=== PATIENT | male | born 1965 | race Caucasian/White ===

== ENCOUNTER 2016-11-24 18:26 | Emergency (ER) | payer OTHER ==
[~2016-11-24] VITALS: Ht 185.4 cm; Wt 104.3 kg
[2016-11-24 19:28] LABS: ABSOLUTE BASOPHIL COUNT 0 /CUMM (0.0-0.2); ABSOLUTE EOSINOPHIL COUNT 0.1 /CUMM (0.0-0.7); ABSOLUTE GRANULOCYTE CT 7.3 /CUMM (1.4-6.5); ABSOLUTE LYMPH COUNT 1.6 /CUMM (1.2-3.4); ABSOLUTE MONOCYTE COUNT 0.6 /CUMM (0.10-0.60); BASOPHIL % 0.3 % (0.0-2.0); EOSINOPHIL % 0.8 % (0-5); GRANULOCYTE % 75.9 % (42.2-75.2); HEMATOCRIT 45.3 % (42-52); MEAN CORPUSCULAR HGB CONC 33.8 G/DL (33.0-37.0); MEAN CORPUSCULAR VOLUME 94.6 FL (80.0-94.0); MEAN PLATELET VOLUME 8.1 FL (7.4-10.4); PLATELET COUNT 279 /CUMM (130-400); RBC DISTRIBUTION WIDTH 13.3 % (11.5-14.5); RED BLOOD CELL CT 4.79 /CUMM (4.70-6.10); WHITE BLOOD CELL COUNT 9.7 /CUMM (4.8-10.8)
--- NOTE | 2016-11-24 20:02 | ED NECK/BACK PAIN COMPLAINT ---
History of Present Illness General Chief Complaint: General Adult Stated Complaint: LOW BACK PAIN, RADIATES TO LOWER ABDOMEN Source: patient, family, old records Exam Limitations: no limitations Vital Signs & Intake/Output Vital Signs & Intake/Output Vital Signs Date Time Temp Pulse Resp B/P B/P Pulse O2 O2 Flow FiO2 Mean Ox Delivery Rate 11/24 2040 97.8 81 18 146/92 97 Room Air 11/25 2003 98 Room Air 11/24 1841 97.4 77 16 144/94 96 Room Air ED Intake and Output 11/25 0000 11/24 1200 Intake Total Output Total Balance Patient 230 lb Weight Weight Reported by Patient Measurement Method Allergies Coded Allergies: MDX - No Known Drug Allergies - Nkd (NO KNOWN DRUG ALLERGIES - NKDA) (11/04/13) Reconcile Medications Tylenol With Codeine (Tylenol With Codeine #3 Tablet) 300 MG-30 MG TABLET 1 TAB PO BIDP PRN pain Triage Note: PT STATES HE IS HAVING BACK PAIN ON AND OFF FOR THE PAST WEEK.. PT STATES HE DID HAVE A TICK ON HIM AND HE IS CONCERNED THAT HE MAY HAVE TICK BORN ILLNESS. STATES SOMETIMES THE PAIN GETS REALY SHARP AND STRONG ON LEFT FLANK THAT WRAPS AROUND INTO HIS GROIN Triage Nurses Notes Reviewed? yes Onset: Abrupt Duration: week(s): (1), intermittent Timing: recent history HPI: This 21-year-old male with history of hypertension and high cholesterol presents to ER for evaluation playing of left lower back pain intermittent in nature for the past 1 week sharp in nature radiating to the left groin. Symptoms come on randomly they're not worse with change in position. He denies any urinary urgency frequency dysuria hematuria. No fever no chills no nausea no vomiting no weight loss. He denies any other joint pain. The patient states that 3 weeks ago he was bitten by a tick which she was able to remove that day. His sister gave him to doxycycline pills that day which he took. He denies any diaphoresis or other joint pain. No recent fall or trauma. He has not taken anything for symptoms (EM CELESTE,GRZEGORZ) Past History Travel History Traveled to [place] past 21 day No Medical History Any Pertinent Medical History? see below for history Cardiovascular: hypertension, hyperlipidemia Surgical History Surgical History: non-contributory Psychosocial History What is your primary language Nepalese Tobacco Use: Never used ETOH Use: occasional use Illicit Drug Use: denies illicit drug use Family History Hx Contributory? No (GRZEGORZ MATA) Review of Systems Review of Systems Constitutional: Reports: see HPI. All Other Systems: Reviewed and Negative Comments Review of systems: See HPI, All other systems negative. Constitutional, no chills no fever, no malaise HEENT: No visual changes no sore throat no congestion, Cardio: No chest pain Skin: no rashes, no change in skin Respiratory: No dyspnea no cough no sputum no hemoptysis GI: No nausea no vomiting, no diarrhea, no bloating/constipation : No dysuria No hematuria, no frequency, no discharge Muscle skeletal: No joint pain, no joint swelling, back pain, no neck pain, Neurologic: No numbness no headache Psych: No stress Heme/endocrine: No bruising Immunology: No lymphadenopathy (GRZEGORZ MATA) Physical Exam Physical Exam General Appearance: well developed/nourished, alert, awake Neck: normal inspection Comments: Well-developed well-nourished person in no acute distress HEENT: Normal EENT exam; PERRL, EOMI, HEAD is atraumatic. moist mucous membranes. Neck: Supple, no lymphadenopathy, normal range of motion Back: Nontender, no ecchymosis or signs of trauma of trauma no CVA tenderness. Full range of motion Cardiovascular: Regular rate and rhythms no murmurs rubs Respiratory: No respiratory distress. Patient speaking in full complete sentences. Breath sounds clear to auscultation bilaterally: NO W/R/R Abdomen: Soft, nontender nondistended, no appreciable organomegaly. Normal bowel sounds. No rebound/guarding, No appreciable enlargement of the abdominal aorta, No ascites. Extremity: No edema, full range of motion of extremities, normal and equal pulses bilaterally, 5 out of 5 strength noted to bilateral upper and lower extremities negative straight leg raise bilaterally Neuro: Alert oriented x3, motor sensory normal, There were no obvious focal neurologic abnormalities. Skin: No appreciable rash on exposed skin, skin is warm and dry. Superficial ecchymosis 0.5 cm located to the left medial proximal thigh, there is no embedded tICK, no induration, fluctance or streaking up the skin Psych: Mood and affect is normal, memory and judgment is normal. (GRZEGORZ MATA) Progress Differential Diagnosis: cauda equina syn, herniated disc, myofascial strain, pyelo/UTI, spinal cord inj, thoracic outlet syn, T/L spine injury, ureterolithiasis, HERNIA, PANCREATITIS, ABSCESS, DIVERTICULITIS Plan of Care: Orders Procedure Date/time Status URINALYSIS 11/25 1843 Complete LYME TITRE 11/25 1843 Active COMPREHENSIVE METABOLIC PANEL 11/25 1843 Complete CBC WITHOUT DIFFERENTIAL 11/25 1843 Complete Laboratory Tests 11/24/161853: Anion Gap 10, Estimated GFR > 60, BUN/Creatinine Ratio 22.5, Glucose 90, Calcium 9.8, Total Bilirubin 0.7, AST 30, ALT 60, Alkaline Phosphatase 83, Total Protein 7.2, Albumin 4.5, Globulin 2.7, Albumin/Globulin Ratio 1.7, CBC w Diff NO MAN DIFF REQ, RBC 4.79, MCV 94.6 H, MCH 32.0 H, RDW 13.3, MPV 8.1, Gran % 75.9 H, Lymphocytes % 17.0 L, Monocytes % 6.0, Eosinophils % 0.8, Basophils % 0.3, Absolute Granulocytes 7.3 H, Absolute Lymphocytes 1.6, Absolute Monocytes 0.6, Absolute Eosinophils 0.1, Absolute Basophils 0, PUBS MCHC 33.8, Lyme Disease Antibody Pending, Urine Color YEL, Urine Clarity CLEAR, Urine pH 5.5, Ur Specific [place] >= 1.030, Urine Protein NEG, Urine Ketones NEG, Urine Nitrite NEG, Urine Bilirubin NEG, Urine Urobilinogen 0.2, Ur Leukocyte Esterase NEG, Ur Microscopic SEDIMENT EXAMINED, Urine RBC 1-3, Urine WBC 1-3 H, Ur Epithelial Cells RARE, Urine Bacteria FEW H, Urine Mucus MANY H, Urine Hemoglobin SMALL H, Urine Glucose NEG Labs ordered old records reviewed CAT scan ordered patient is declining anything for pain when offered Discussed with patient and his at length his CAT scan findings case and CAT scan were reviewed with Dr. Garcia MRI is unavailable at this time we will get CAT scan with IV contrast Toradol 30 IV ordered Discussed with patient and his at length his CAT scan findings. I discussed with him that he will require an MRI with IV contrast to further evaluate these lesions advised to call his primary care physician tomorrow CAT scan was discussed with Dr. Garcia agrees with plan patient feels comfortable pain is improved with Toradol at her office questions I discussed with the patient at length all of their results. I had an extensive conversation regarding need for close follow up with their primary care physician this week as well as return precautions. I answered all of their questions, they feel comfortable with the plan and follow-up care. I discussed the medications that they will receive with the patient. I gave them signs and symptoms that could indicate an adverse reaction. I have advised them to limit their activities until they can see how they respond to the medication. (EM CELESTE,GRZEGORZ) Diagnostic Imaging: Viewed by Me: CT Scan. Discussed w/RAD: CT Scan. Radiology Impression: PATIENT: SHILPA HUSAIN PRESENT AGE: 51 PATIENT ACCOUNT NO: [id number] : 65 LOCATION: [facility] ORDERING PHYSICIAN: GRZEGORZ CELESTE SERVICE DATE: 11/24/16 EXAM TYPE: CAT - CT ABD & PELVIS W/O IV CONTRAS EXAMINATION: CT ABDOMEN AND PELVIS WITHOUT CONTRAST CLINICAL INFORMATION: Left lower back pain radiating into the left groin COMPARISON: None TECHNIQUE: Multidetector volumetric imaging was performed from the superior aspect of the liver through the pubic symphysis. Sagittal and coronal reformatted images were obtained on the technologist's workstation. DLP: 595.94 mGy-cm FINDINGS: LUNG BASES: The visualized lung bases are unremarkable. LIVER, GALLBLADDER, AND BILIARY TREE: 2 vague hypodense regions are seen at the hepatic dome measuring 2.0 and 1.4 cm. 5.5 x 4.1 cm oval hypodense lesion intimately associated with the undersurface of the left hepatic lobe interposed between the liver and stomach and unable to be resolved from hepatic tissue along its superior aspect. Evaluation is limited without IV contrast. No evidence of intrahepatic biliary dilatation. Focal calcification within the hepatic parenchyma is of doubtful clinical significance. The gallbladder is unremarkable with no evidence of radiopaque gallstones, gallbladder wall thickening, or obvious pericholecystic inflammatory changes. PANCREAS: Unremarkable. SPLEEN: Unremarkable. ADRENAL GLANDS: Unremarkable. KIDNEYS AND URETERS: The kidneys are normal in size, shape, and attenuation. No hydronephrosis, hydroureter, or calculi seen. No perinephric stranding. BLADDER: Unremarkable. GASTROINTESTINAL TRACT: Scattered diverticulosis predominantly involving the sigmoid colon without CT evidence of diverticulitis. The appendix is unremarkable. No evidence of bowel obstruction. ABDOMINAL WALL: No significant hernia is appreciated. LYMPH NODES: No evidence of lymphadenopathy within the abdomen or pelvis by CT criteria. VASCULAR: Circumaortic left renal vein. No abdominal aortic aneurysm. PELVIC VISCERA: Unremarkable. Pelvic phleboliths. OSSEOUS STRUCTURES: Unremarkable. IMPRESSION: 1. 3 ill-defined indeterminate hypodense lesions within the liver, the largest of which measures up to 5.5 cm and is exophytic off the left hepatic lobe. Evaluation is limited without IV contrast. Recommend initial workup with dedicated liver ultrasound or contrast-enhanced CT or MRI of the liver. 2. Diverticulosis without CT evidence of diverticulitis. 3. No evidence of urolithiasis. Circumaortic left renal vein. This critical result was discussed with BOOKER Velasquez at 8:54 PM on 11/24/2016 and it was ascertained that the content and urgency of the report was understood at the time of direct communication. DICTATED BY: ELBERT FRANCIS MD DATE/TIME DICTATED:11/24/162029 BILLPOSTER:[email or web address] DATE/TIME TRANSCRIBED:2029 CONFIDENTIAL, DO NOT COPY WITHOUT APPROPRIATE AUTHORIZATION. < Electronically signed in Other Vendor System> SIGNED BY: ELBERT FRANCIS MD 2056, PATIENT: SHILPA HUSAIN PRESENT AGE: 51 PATIENT ACCOUNT NO: [id number] : 65 LOCATION: [facility] ORDERING PHYSICIAN: GRZEGORZ CELESTE SERVICE DATE: 11/24/16 EXAM TYPE: CAT - CT ABD & PELVIS W IV CONTRAST EXAMINATION: CT ABDOMEN AND PELVIS WITH CONTRAST CLINICAL INFORMATION: Evaluate for liver mass. Liver lesions on noncontrast. Left-sided lower back pain. COMPARISON: None. TECHNIQUE: Multidetector volumetric imaging was performed of the abdomen and pelvis before and after the IV administration of 95 mL of Optiray 320 intravenous contrast. Sagittal and coronal reformatted images were obtained on the technologist's workstation. DLP: 495 mGy-cm. FINDINGS: LUNG BASES: The visualized lung bases are unremarkable. LIVER, GALLBLADDER, AND BILIARY TREE: As noted previously there are 3 hypodense foci in the right lobe of the liver just distal to the dome ranging in size between 1.17 cm. There is some partial enhancement of the lesions. There is also a heterogeneously-enhancing focus likely arising from the surface of the liver abutting the adjacent lesser curvature of the stomach. Its borders are not well- defined. However, this measures up to 5.5 cm transverse and 3 cm AP. The density and the appearance appears similar to that of the smaller lesions noted near the dome of the right lobe of the liver. There is no intrahepatic or extrahepatic biliary dilatation. The gallbladder is unremarkable with no evidence of radiopaque gallstones, gallbladder wall thickening, or obvious pericholecystic inflammatory changes. PANCREAS: Unremarkable. SPLEEN: Unremarkable. ADRENAL GLANDS: Unremarkable. KIDNEYS AND URETERS: The kidneys are normal in size, shape , and attenuation. No hydronephrosis, hydroureter, or calculi seen. No perinephric stranding. BLADDER: Unremarkable. GASTROINTESTINAL TRACT: Scattered diverticula in the descending and sigmoid colon. No diverticulitis. Appendix unremarkable. Small bowel normal. Stomach normal. ABDOMINAL WALL: Normal. No hernia. LYMPH NODES: Normal. VASCULAR: Mild arterial calcification throughout. PELVIC VISCERA: Unremarkable. OSSEOUS STRUCTURES: Multilevel spondylosis of the lumbosacral spine with degenerative disc changes most prominent at the L2-L3, L4 -L5 and L5-S1 levels. IMPRESSION: 1. Prominent heterogeneous mass in the left lobe of the liver with a similar appearance to the smaller lesions noted near the dome of the right lobe of the liver. These most likely reflect hemangiomas. This diagnosis could be confirmed with dynamic MRI of the liver with contrast. 2. Mild calcific atherosclerotic disease. 3. Multilevel spondylosis of the lumbosacral spine. DICTATED BY: ALYSIA ANN MD DATE/TIME DICTATED:2131 BILLPOSTER:STANISLAV DATE/TIME TRANSCRIBED:11/24/162131 CONFIDENTIAL, DO NOT COPY WITHOUT APPROPRIATE AUTHORIZATION. <Electronically signed in Other Vendor System> SIGNED BY: ALYSIA ANN MD 11/24/162152 (GRZEGORZ MATA) Departure Departure Time of Disposition: 2214 Disposition: HOME OR SELF CARE Condition: Stable Clinical Impression Primary Impression: Back pain Secondary Impressions: Liver lesion Referrals: ALYSIA VILLAFUERTE MD (PCP/Family) Additional Instructions: Follow-up with your primary care physician tomorrow regarding the incidental findings on the CAT scan as discussed. You'll require a MRI of your liver with IV contrast to further evaluate. Tylenol with codeine for pain. this was sent to [facility]. this may make you drowsy. return to the ER at anytime sooner with any concerns Departure Forms: Customer Survey General Discharge Information Prescriptions: Current Visit Scripts Tylenol With Codeine (Tylenol With Codeine #3 Tablet) 1 TAB PO BIDP PRN pain #10 TAB (GRZEGORZ MATA) PA/MILL SET UP Co-Sign Statement Statement: ED Attending supervision documentation- [] I saw and evaluated the patient. I have also reviewed all the pertinent lab results and diagnostic results. I agree with the findings and the plan of care as documented in the PA's/MILL SET UP's documentation. [x] I have reviewed the ED Record and agree with the PA's/MILL SET UP's documentation. [] Additions or exceptions (if any) to the PAs/MILL SET UP's note and plan are summarized below: [] (KAYLA LYLE,SHOBHA Dempsey)
[2016-11-24 20:41] VITALS: BP 146/92
--- NOTE | 2016-11-24 20:57 | CT SCAN REPORT ---
EXAMINATION: CT ABDOMEN AND PELVIS WITHOUT CONTRAST CLINICAL INFORMATION: Left lower back pain radiating into the left groin COMPARISON: None TECHNIQUE: Multidetector volumetric imaging was performed from the superior aspect of the liver through the pubic symphysis. Sagittal and coronal reformatted images were obtained on the technologist's workstation. DLP: 595.94 mGy-cm FINDINGS: LUNG BASES: The visualized lung bases are unremarkable. LIVER, GALLBLADDER, AND BILIARY TREE: 2 vague hypodense regions are seen at the hepatic dome measuring 2.0 and 1.4 cm. 5.5 x 4.1 cm oval hypodense lesion intimately associated with the undersurface of the left hepatic lobe interposed between the liver and stomach and unable to be resolved from hepatic tissue along its superior aspect. Evaluation is limited without IV contrast. No evidence of intrahepatic biliary dilatation. Focal calcification within the hepatic parenchyma is of doubtful clinical significance. The gallbladder is unremarkable with no evidence of radiopaque gallstones, gallbladder wall thickening, or obvious pericholecystic inflammatory changes. PANCREAS: Unremarkable. SPLEEN: Unremarkable. ADRENAL GLANDS: Unremarkable. KIDNEYS AND URETERS: The kidneys are normal in size, shape, and attenuation. No hydronephrosis, hydroureter, or calculi seen. No perinephric stranding. BLADDER: Unremarkable. GASTROINTESTINAL TRACT: Scattered diverticulosis predominantly involving the sigmoid colon without CT evidence of diverticulitis. The appendix is unremarkable. No evidence of bowel obstruction. ABDOMINAL WALL: No significant hernia is appreciated. LYMPH NODES: No evidence of lymphadenopathy within the abdomen or pelvis by CT criteria. VASCULAR: Circumaortic left renal vein. No abdominal aortic aneurysm. PELVIC VISCERA: Unremarkable. Pelvic phleboliths. OSSEOUS STRUCTURES: Unremarkable. IMPRESSION: 1. 3 ill-defined indeterminate hypodense lesions within the liver, the largest of which measures up to 5.5 cm and is exophytic off the left hepatic lobe. Evaluation is limited without IV contrast. Recommend initial workup with dedicated liver ultrasound or contrast-enhanced CT or MRI of the liver. 2. Diverticulosis without CT evidence of diverticulitis. 3. No evidence of urolithiasis. Circumaortic left renal vein. This critical result was discussed with BOOKER Velasquez at 8:54 PM on 11/24/2016 and it was ascertained that the content and urgency of the report was understood at the time of direct communication.
--- NOTE | 2016-11-24 21:53 | CT SCAN REPORT ---
EXAMINATION: CT ABDOMEN AND PELVIS WITH CONTRAST CLINICAL INFORMATION: Evaluate for liver mass. Liver lesions on noncontrast. Left-sided lower back pain. COMPARISON: None. TECHNIQUE: Multidetector volumetric imaging was performed of the abdomen and pelvis before and after the IV administration of 95 mL of Optiray 320 intravenous contrast. Sagittal and coronal reformatted images were obtained on the technologist's workstation. DLP: 495 mGy-cm. FINDINGS: LUNG BASES: The visualized lung bases are unremarkable. LIVER, GALLBLADDER, AND BILIARY TREE: As noted previously there are 3 hypodense foci in the right lobe of the liver just distal to the dome ranging in size between 1.17 cm. There is some partial enhancement of the lesions. There is also a heterogeneously-enhancing focus likely arising from the surface of the liver abutting the adjacent lesser curvature of the stomach. Its borders are not well-defined. However, this measures up to 5.5 cm transverse and 3 cm AP. The density and the appearance appears similar to that of the smaller lesions noted near the dome of the right lobe of the liver. There is no intrahepatic or extrahepatic biliary dilatation. The gallbladder is unremarkable with no evidence of radiopaque gallstones, gallbladder wall thickening, or obvious pericholecystic inflammatory changes. PANCREAS: Unremarkable. SPLEEN: Unremarkable. ADRENAL GLANDS: Unremarkable. KIDNEYS AND URETERS: The kidneys are normal in size, shape, and attenuation. No hydronephrosis, hydroureter, or calculi seen. No perinephric stranding. BLADDER: Unremarkable. GASTROINTESTINAL TRACT: Scattered diverticula in the descending and sigmoid colon. No diverticulitis. Appendix unremarkable. Small bowel normal. Stomach normal. ABDOMINAL WALL: Normal. No hernia. LYMPH NODES: Normal. VASCULAR: Mild arterial calcification throughout. PELVIC VISCERA: Unremarkable. OSSEOUS STRUCTURES: Multilevel spondylosis of the lumbosacral spine with degenerative disc changes most prominent at the L2-L3, L4-L5 and L5-S1 levels. IMPRESSION: 1. Prominent heterogeneous mass in the left lobe of the liver with a similar appearance to the smaller lesions noted near the dome of the right lobe of the liver. These most likely reflect hemangiomas. This diagnosis could be confirmed with dynamic MRI of the liver with contrast. 2. Mild calcific atherosclerotic disease. 3. Multilevel spondylosis of the lumbosacral spine.
[2016-11-24] MEDS ORDERED: TYLENOL WITH C1 EACH PO (22:17)
== END 2016-11-24 22:23 ==
LOC: ERH 18:26
PROVIDERS: Emergency Medicine
DX: K76.9 Liver disease, unspecified (principal); I10 Essential (primary) hypertension; E78.5 Hyperlipidemia, unspecified; F10.10 Alcohol abuse, uncomplicated
CPT/HCPCS: 86618; 74176; 74177; 81001; 96374; J1885

== ENCOUNTER 2018-01-20 17:35 | Inpatient (IN) | payer OTHER ==
[~2018-01-20] VITALS: Ht 185.4 cm; Wt 106.1 kg
[~2018-01-20 17:35] MED LIST: TYLENOL WITH C1 EACH PO
--- NOTE | 2018-01-20 18:38 | ED CARDIAC/CP/PALPITATIONS ---
History of Present Illness General Chief Complaint: Chest Pain Stated Complaint: CP/SOB Source: patient Exam Limitations: no limitations Vital Signs & Intake/Output Vital Signs & Intake/Output Vital Signs Date Time Temp Pulse Resp B/P B/P Pulse O2 O2 Flow FiO2 Mean Ox Delivery Rate 01/20 1927 83 16 116/70 97 Room Air 01/20 1744 98.2 108 18 108/68 96 Room Air Allergies Coded Allergies: No Known Allergies (01/20/18) Reconcile Medications Aspirin (Ecotrin*) 81 MG TABLET.DR 1 TAB PO DAILY HEART/BLOOD (Reported) Losartan/Hydrochlorothiazide (Losartan-Hctz 100-25 MG Tab) 100 MG-25 MG TABLET 1 TAB PO DAILY BP (Reported) Metoprolol Succinate 50 MG TAB.ER.24H 1 TAB PO DAILY HEART/BP (Reported) Triage Note: 52 YEAR OLD MALE STATES THAT HE WAS WORKING OUTSIDE ALL DAY, STATES THAT HE WAS SOAKED IN SWEAT, STATES THAT HE BECAM A LITTLE SOB, FELT DIZZY ( STATES THAT HE THOUGHT HE WAS GOING TO PASS OUT) PT STATES THAT HE DID NOT DRINK MUCH FOR FLUIDS. PT ALSO STATES THAT HE HAD UPPER ABD /MID EPI PRESSURE , NON AT THIS TIME. PT STATES THAT HE DID HAVE A LITTLE SOB THIS AM WHEN HE WOKE Triage Nurses Notes Reviewed? yes Onset: Abrupt Duration: better Timing: single episode today Quality/Severity: moderate Location: substernal Activities at Onset: activity HPI: Patient is a 52-year-old male with a past medical history of hypertension who presents emergency room with concerns of 3 hours prior to arrival while outside performing lawn work he had acute onset of dizziness lightheadedness sensation mild nausea and substernal chest pain and shortness of breath. Symptoms have improved prior to arrival. 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 see below for history Neurological: NONE EENT: NONE Cardiovascular: hypertension, hyperlipidemia Respiratory: NONE Gastrointestinal: NONE Hepatic: NONE Renal: NONE Musculoskeletal: NONE Psychiatric: NONE Endocrine: NONE Blood Disorders: NONE Cancer(s): NONE HEALTHCARE BUSINESS ANALYST/Reproductive: NONE Surgical History Surgical History: non-contributory Psychosocial History What is your primary language Portuguese Tobacco Use: Never used ETOH Use: denies use Illicit Drug Use: denies illicit drug use Family History Hx Contributory? No (Jose Calles) Review of Systems Review of Systems Constitutional: Reports: no symptoms. EENTM: Reports: no symptoms. Respiratory: Reports: see HPI. Cardiovascular: Reports: see HPI. GI: Reports: see HPI. Genitourinary: Reports: no symptoms. Musculoskeletal: Reports: no symptoms. Skin: Reports: no symptoms. Neurological/Psychological: Reports: no symptoms. Hematologic/Endocrine: Reports: no symptoms. Immunologic/Allergic: Reports: no symptoms. All Other Systems: Reviewed and Negative (Jose Calles) Physical Exam Physical Exam General Appearance: no apparent distress, alert, comfortable Head: atraumatic Eyes: Bilateral: normal appearance. Ears, Nose, Throat: hearing grossly normal Neck: normal inspection Respiratory: normal breath sounds, chest non-tender, no respiratory distress Cardiovascular: tachycardia Peripheral Pulses: 2+ radial (R) Gastrointestinal: normal bowel sounds, soft, non-tender Extremities: normal inspection, no edema Neurologic/Psych: no motor/sensory deficits, awake, alert, oriented x 3 Skin: intact, normal color, warm/dry Core Measures ACS in differential dx? Yes CVA/TIA Diagnosis No Sepsis Present: No Sepsis Focused Exam Completed? No (Jose Calles) Progress Differential Diagnosis: AMI, aortic dissection, atrial fibrillation, cholecystitis, CHF/pulm edema, costochondritis, hyperkalemia, hypovolemia, hyperthyroid, hyperventilation, intracranial hemorrhage, musculoskeletal pain, myocarditis, pancreatitis, pericarditis, pneumonia, pneumothorax, PSVT, pulmonary embolism, PUD/GERD, PVCs/PACs, respiratory failure, rib fracture, sepsis, unstable angina, V-fib/V-Tach, WPW syndrome Plan of Care: Orders Procedure Date/time Status Regular Diet 01/21 B Active TROPONIN LEVEL 01/20 2300 Active EKG 01/20 2300 Active Add-on Test (ER Only) 01/21 2204 Active Add-on Test (ER Only) 01/20 2158 Active Patient Data 01/20 2155 Active OXYGEN SETUP (GEN) 01/20 2134 Active Saline Lock 01/20 2134 Active Admit to inpatient 01/20 2134 Active Vital Signs 01/20 2134 Active Activity/Ambulation 01/20 2134 Active Code Status 01/20 2134 Active PARTIAL THROMBOPLASTIN TIME 01/20 1855 Active PROTHROMBIN TIME 01/20 1855 Active LIPASE 01/20 1855 Active CREATINE PHOSPHOKINASE 01/20 1855 Active Intake & Output 01/20 1853 Active Telemetry/Animal Cruelty Investigation Supervisor 01/20 1825 Active TROPONIN LEVEL 01/20 1825 Active D-DIMER 01/20 1825 Active COMPREHENSIVE METABOLIC PANEL 01/20 1825 Active CBC WITHOUT DIFFERENTIAL 01/20 1825 Complete EKG 01/20 1736 Active Current Medications Sig/Floridalma Start time Last Medication Dose Stop Time Status Admin Heparin Sodium 25,000 UNIT Q24H 01/20 2145 UNVr (Porcine) (Heparin) Sodium Chloride 500 ML Laboratory Tests 01/20/181854: Anion Gap 14, Estimated GFR 58 L, BUN/Creatinine Ratio 17.7, Glucose 94, Calcium 9.7, Total Bilirubin 0.6, AST 34, ALT 39, Alkaline Phosphatase 77, Creatine Kinase Pending, Troponin I < 0.01, Total Protein 7.1, Albumin 4.1, Globulin 3.0, Albumin/Globulin Ratio 1.4, Lipase 131, PT Pending, INR Pending, APTT Pending, D-Dimer High Sensitivty 1063 H, CBC w Diff NO MAN DIFF REQ, RBC 4.65 L, MCV 93.5, MCH 32.5 H, MCHC 34.8, RDW 12.9, MPV 7.9, Gran % 80.6 H, Lymphocytes % 12.6 L, Monocytes % 4.6, Eosinophils % 1.8, Basophils % 0.4, Absolute Granulocytes 8.3 H, Absolute Lymphocytes 1.3, Absolute Monocytes 0.5, Absolute Eosinophils 0.2, Absolute Basophils 0 01/20/18 182: Lipase Cancelled Patient upon initial presentation is resting comfortably at bedside Denies any active chest pain shortness of breath mildly still exists Clear lungs on station no respiratory distress 1932 d-dimer was elevated CT scan will be obtained CT angiogram shows concerns of segmental and subsegmental pulmonary embolism, discussed CT scan results with patient patient was fecal occult negative patient will receive heparin I also discussed with patient the CT scan results of the liver and which they said that they received outpatient MRI showing concerns only of hemangioma Diagnostic Imaging: Viewed by Me: CT Scan. Radiology Impression: acute abnormality Initial ED EKG: SINUS TACHYCARDIA 100 BPM Comments: PATIENT: SHILPA HUSAIN PRESENT AGE: 52 PATIENT ACCOUNT NO: [id number] : 65 LOCATION: [facility] ORDERING PHYSICIAN: Jose CELESTE SERVICE DATE: 01/20/18 EXAM TYPE: CAT - CTA CHEST-PULMONARY EMBOLISM EXAMINATION: CT ANGIOGRAM OF THE CHEST WITH CONTRAST (CT PULMONARY ANGIOGRAM FOR PE) CLINICAL INFORMATION: Shortness of breath and chest pain. COMPARISON: None TECHNIQUE: Prior to contrast administration, noncontrast localization images were obtained. Subsequently, multidetector volumetric imaging was performed from the thoracic inlet to below the diaphragms following the administration of 95 mL Optiray 320 intravenous contrast. No contrast reaction reported. Sagittal, coronal, and MIP oblique sagittal reformatted images were obtained on the CT workstation, uploaded to PACS, and reviewed. FINDINGS: Multiple small segmental and subsegmental pulmonary emboli are appreciated within right middle lobe segmental and subsegmental branches, multiple right lower lobe segmental and subsegmental branches, and a few left lower lobe subsegmental arterial branches. There is no focal consolidation, pleural effusion, or pneumothorax. Left basilar atelectasis. The thoracic aorta is normal in caliber. The heart is normal in size without evidence of a pericardial effusion. There is no mediastinal, hilar, or axillary adenopathy. No significant soft tissue findings within the chest. Stable appearing large heterogeneous exophytic liver mass projecting inferiorly from the left lobe of the liver along the lesser curvature of the stomach with previous contrast-enhanced CT findings suggestive of a hemangioma. A few additional smaller probable hemangiomas are appreciated near the dome of the liver on the prior study as well. As recommended previously, a liver protocol MRI with and without contrast would be helpful in more definitive assessment. No acute osseous abnormalities. Thoracic spondylosis. IMPRESSION: - Multiple small segmental and subsegmental pulmonary emboli are appreciated within right middle lobe segmental and subsegmental branches, multiple right lower lobe segmental and subsegmental branches, and a few left lower lobe subsegmental arterial branches. - Left basilar atelectasis - Stable appearing large heterogeneous exophytic liver mass projecting inferiorly from the left lobe of the liver along the lesser curvature of the stomach with previous contrast-enhanced CT findings suggestive of a hemangioma. A few additional smaller probable hemangiomas are appreciated near the dome of the liver on the prior study as well. As recommended previously, a liver protocol MRI with and without contrast would be helpful in more definitive assessment. Findings discussed with Dr. Nina at 9:30 PM on January 20, 2018. DICTATED BY: Luis Eduardo Park MD DATE/TIME DICTATED:01/20/182117 SUPPLIER SPECIALIST:STANISLAV DATE/TIME TRANSCRIBED:01/20/182117 CONFIDENTIAL, DO NOT COPY WITHOUT APPROPR (Jose Calles) Departure Departure Disposition: STILL A PATIENT Condition: Stable Clinical Impression Primary Impression: Pulmonary emboli Secondary Impressions: NIKKO (acute kidney injury) Referrals: Sherron LYLE,Matt Carroll (PCP/Family) Departure Forms: Customer Survey General Discharge Information Admission Note Spoke With: Gunjan Horton MD Documentation of Exam: Documentation of any treatments & extenuating circumstances including Concerns Regarding Discharge (functional status, medication knowledge or non-compliance, living conditions, etc.) that warrant an admission rather than observation: [ Patient requires pulmonary consultation, repeat labs repeat cardiac enzymes repeat EKG anticoagulation of heparin] (Jose Calles) PA/FINISH REPAIRER Co-Sign Statement Statement: ED Attending supervision documentation- x I saw and evaluated the patient. I have also reviewed all the pertinent lab results and diagnostic results. I agree with the findings and the plan of care as documented in the PA's/FINISH REPAIRER's documentation. CP, SOB,CT with pulmonary emboli [] I have reviewed the ED Record and agree with the PA's/FINISH REPAIRER's documentation. [] Additions or exceptions (if any) to the PAs/FINISH REPAIRER's note and plan are summarized below: [] (Ladonna LYLE,Jaylan) Critical Care Note Critical Care Note Critical Care Time: 30-74 min (Jose Calles)
[2018-01-20 19:02] LABS: ABSOLUTE BASOPHIL COUNT 0 /CUMM (0.0-0.2); ABSOLUTE EOSINOPHIL COUNT 0.2 /CUMM (0.0-0.7); ABSOLUTE GRANULOCYTE CT 8.3 /CUMM (1.4-6.5); ABSOLUTE LYMPH COUNT 1.3 /CUMM (1.2-3.4); ABSOLUTE MONOCYTE COUNT 0.5 /CUMM (0.10-0.60); BASOPHIL % 0.4 % (0.0-2.0); EOSINOPHIL % 1.8 % (0-5); GRANULOCYTE % 80.6 % (42.2-75.2); HEMATOCRIT 43.5 % (42-52); MEAN CORPUSCULAR HGB 32.5 PG (27.0-31.0); MEAN CORPUSCULAR HGB CONC 34.8 G/DL (33.0-37.0); MEAN CORPUSCULAR VOLUME 93.5 FL (80.0-94.0); MEAN PLATELET VOLUME 7.9 FL (7.4-10.4); PLATELET COUNT 288 /CUMM (130-400); RBC DISTRIBUTION WIDTH 12.9 % (11.5-14.5); RED BLOOD CELL CT 4.65 /CUMM (4.70-6.10); WHITE BLOOD CELL COUNT 10.3 /CUMM (4.8-10.8)
--- NOTE | 2018-01-20 21:43 | CT SCAN REPORT ---
EXAMINATION: CT ANGIOGRAM OF THE CHEST WITH CONTRAST (CT PULMONARY ANGIOGRAM FOR PE) CLINICAL INFORMATION: Shortness of breath and chest pain. COMPARISON: None TECHNIQUE: Prior to contrast administration, noncontrast localization images were obtained. Subsequently, multidetector volumetric imaging was performed from the thoracic inlet to below the diaphragms following the administration of 95 mL Optiray 320 intravenous contrast. No contrast reaction reported. Sagittal, coronal, and MIP oblique sagittal reformatted images were obtained on the CT workstation, uploaded to PACS, and reviewed. FINDINGS: Multiple small segmental and subsegmental pulmonary emboli are appreciated within right middle lobe segmental and subsegmental branches, multiple right lower lobe segmental and subsegmental branches, and a few left lower lobe subsegmental arterial branches. There is no focal consolidation, pleural effusion, or pneumothorax. Left basilar atelectasis. The thoracic aorta is normal in caliber. The heart is normal in size without evidence of a pericardial effusion. There is no mediastinal, hilar, or axillary adenopathy. No significant soft tissue findings within the chest. Stable appearing large heterogeneous exophytic liver mass projecting inferiorly from the left lobe of the liver along the lesser curvature of the stomach with previous contrast-enhanced CT findings suggestive of a hemangioma. A few additional smaller probable hemangiomas are appreciated near the dome of the liver on the prior study as well. As recommended previously, a liver protocol MRI with and without contrast would be helpful in more definitive assessment. No acute osseous abnormalities. Thoracic spondylosis. IMPRESSION: - Multiple small segmental and subsegmental pulmonary emboli are appreciated within right middle lobe segmental and subsegmental branches, multiple right lower lobe segmental and subsegmental branches, and a few left lower lobe subsegmental arterial branches. - Left basilar atelectasis - Stable appearing large heterogeneous exophytic liver mass projecting inferiorly from the left lobe of the liver along the lesser curvature of the stomach with previous contrast-enhanced CT findings suggestive of a hemangioma. A few additional smaller probable hemangiomas are appreciated near the dome of the liver on the prior study as well. As recommended previously, a liver protocol MRI with and without contrast would be helpful in more definitive assessment. Findings discussed with Dr. Nina at 9:30 PM on January 20, 2018.
[2018-01-20] MEDS ORDERED: METOPROLOL SUCC50 M2 PO (21:46)
[2018-01-20] MEDS ORDERED: LOSARTAN-HCTZ1 EAC2 PO (21:46)
[2018-01-20] MEDS ORDERED: ASPIRIN EC81 M1 PO (21:49)
--- NOTE | 2018-01-20 22:13 | History & Physical ---
Daisy Louise 01/20/18 2213: General Information and HPI History of Present Illness: Rza Linares is a 52 YO male with a PMHx. of HTN who presents to the ED with a chief complaint of "dyspnea." Patient states that a few hours prior to coming to the hospital he was working outside cutting trees. Patient says that he started to experience shortness of breath, lightheadedness, and dizziness, which he had not experienced previously. Patient says that the symptoms came on suddenly and lasted approximately 20 minutes in duration. Patient states he subsequently went inside his home and measured his blood pressure, which indicated he had a low systolic reading. Patient says he drank some water to only minimal relief of his symptoms. Patient denies any recent leg swelling, surgeries, or bone fractures. Patient states he took a plane ride to [place] in November but denies any recent long distance automobile travel. Patient additionally mentions he experiences, usually after eating fatty, fried food, occasional pain on the outer part of his chest by pointing to his right upper quadrant. Patient further denies any chest pain, palpitations, nausea, vomiting, and fevers. Patient denies smoking tobacco products. Patient admits to drinking alcohol occasionally. Patient works in the [employer] industry, usually standing on his feet for the majority of his work. Patient's PCP is Dr. Matt Siu and his Yard Pipe Grader is Dr. Richmond. Allergies/Medications Allergies: Coded Allergies: No Known Allergies (01/20/18) Home Med list Aspirin (Ecotrin*) 81 MG TABLET.DR 1 TAB PO DAILY HEART/BLOOD (Reported) Losartan/Hydrochlorothiazide (Losartan-Hctz 100-25 MG Tab) 100 MG-25 MG TABLET 1 TAB PO DAILY BP (Reported) Metoprolol Succinate 50 MG TAB.ER.24H 1 TAB PO DAILY HEART/BP (Reported) Past History Travel History Traveled to [place] past 21 day No Medical History Neurological: NONE EENT: NONE Cardiovascular: hypertension, hyperlipidemia Respiratory: NONE Gastrointestinal: NONE Hepatic: NONE Renal: NONE Musculoskeletal: NONE Psychiatric: NONE Endocrine: NONE Blood Disorders: NONE Cancer(s): NONE UI SOFTWARE DEVELOPER/Reproductive: NONE Surgical History Surgical History: non-contributory Past Family/Social History Psychosocial History Who Do You Live With? spouse Smoking Status: Never Smoked ETOH Use: occasional use Illicit Drug Use: denies illicit drug use Review of Systems Review of Systems Constitutional: Denies: chills, diaphoresis, fever, weakness. EENTM: Denies: visual changes. Cardiovascular: Denies: chest pain, orthopena, palpitations. Respiratory: Reports: cough, short of breath. Denies: orthopnea. GI: Denies: abdominal pain, diarrhea, nausea. Genitourinary: Denies: dysuria, frequency. Musculoskeletal: Reports: joint pain (right shoulder dec. ROM). Skin: Denies: no symptoms. Exam & Diagnostic Data Last 24 Hrs of Vital Signs/I&O Vital Signs Date Time Temp Pulse Resp B/P B/P Pulse O2 O2 Flow FiO2 Mean Ox Delivery Rate 01/20 2355 96 Room Air 01/20 2330 98.3 72 16 124/78 95 01/20 2314 Room Air 01/20 2238 63 18 122/79 96 Room Air 01/20 1927 83 16 116/70 97 Room Air 01/20 1744 98.2 108 18 108/68 96 Room Air Intake & Output 01/21 0800 01/21 0000 01/20 1600 Intake Total 1000 Output Total Balance 1000 Intake, IV 1000 Patient 238 lb Weight Weight Bed scale Measurement Method Physical Exam General Appearance Alert, Oriented X3, Cooperative, No Acute Distress Skin No Rashes HEENT Atraumatic, PERRLA Neck Supple, No JVD Lymphatic Cervical nl Cardiovascular Regular Rate, Normal S1, Normal S2 Lungs Clear to Auscultation Abdomen Normal Bowel Sounds, Soft, No Tenderness Neurological Strength at 5/5 X4 Ext, Normal Tone, Sensation Intact Extremities Normal Pulses, 1+ edema b/l LE Assessment/Plan Assessment: Chest CTA: - Multiple small segmental and subsegmental pulmonary emboli are appreciated within right middle lobe segmental and subsegmental branches, multiple right lower lobe segmental and subsegmental branches, and a few left lower lobe subsegmental arterial branches. - Left basilar atelectasis - Stable appearing large heterogeneous exophytic liver mass projecting inferiorly from the left lobe of the liver along the lesser curvature of the stomach with previous contrast-enhanced CT findings suggestive of a hemangioma. A few additional smaller probable hemangiomas are appreciated near the dome of the liver on the prior study as well. As recommended previously, a liver protocol MRI with and without contrast would be helpful in more definitive assessment. Pertinent Labs: D-Dimer 1063 BUN 23, Cr 1.3 Etiology in this case of dyspnea with a postive D-dimer and a radiologically confirmed positive Chest CTA is pulmonary embolism. Risk factors associated with this condition include age > 40, prior VTE, immobilization, CVA, cancer, and long bone fracture among others. However, in 20% of patients with PE there are no significant risk factors. Assessment: 1. Pulmonary Embolism 2. h/o HTN Plan: * Pulmonary Embolism - Admit to telemetry for cardiac monitoring and assessment of vitals - Serial EKG/Troponin (follow 8 AM) - Anticoagulation via Heparin IV q24h - Aspirin 81 mg - If continuation of sx. incl. dyspnea, ABG follow-up - ECHO; upon recommendation of cardiology consultation for evaluation of right heart strain - Lower Extremity Doppler Ultrasound to assess clot burden - If required, oxygen therapy to maintain saturation > 92% via NC or face mask - DVT PPx. - FC As Ranked By This Provider Problem List: 1. Pulmonary emboli 2. Hypertension Core Measures/Misc (03/29) Acute Coronary Syndrome ACS Diagnosis: No Congestive Heart Failure Congestive Heart Failure Diagnosis No Cerebrovascular Accident CVA/TIA Diagnosis: No VTE (View Protocol) VTE Risk Factors Acute Medical Illness No Mechanical VTE Prophylaxis d/t N/A MechProphylax Ordered No VTE Pharm Prophylaxis d/t NA PharmProphylax ordered Sepsis (View protocol) Sepsis Present: No If YES complete Sepsis Event Note If YES complete Sepsis Event Note Pj Escobar 01/20/18 7661: Core Measures/Misc (03/29) Sepsis (View protocol) If YES complete Sepsis Event Note If YES complete Sepsis Event Note Resident Review Statement Resident Statement: examined this patient, discussed with buyer intern, agreed with buyer intern Other Findings: Mr Linares is a 52 M w/ a PMHx of hypertension( long standing), hyperlipidemia, walt on cpap came to the hospital with a chief concern of acute onset of dizziness, dyspnea and right chest pain. Reported to have been working outdoors 3 hours present presentation. Occassional non productive cough, no palpitations. Reported to have recent stress test 3 months ago with negative findings. Last travel to [place] 3 m ago by air. No weight loss. No immobilization. No smoking, or alcohol use. 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 Cant tolerate atorvastatin, due to rhabomyolysis. Plan on seeing retail manager. Underwent a shoulder repair a long time ago. No family h/o of clotting disorders. Fam hx of CVA in father, and CAD in mother. No personal or family h/o malignancy. Didnt undergo colonoscopy yet. Follows up with PCP regarding the hemangioma. No h/o of ivda or blood transfusions. Vitals at the time of admission-temperature 98.2, pulse rate 108, respiration 18 , blood pressure 108-68-->106/70, pulse ox 96% on room air. General Exam: AAOx3, No acute distress, Skin: No rashes, no breakdown;HEENT: PERRLA, EOMI;Neck: Supple, No JVD; No cervical lymphadenopathy;CVS: Reg Rate, Normal S1,S2, No MGR;Resp: Normal air entry, no ronchi/rales;Abdomen: Soft, No tenderness, Normal Bowel Sounds;Neuro: Normal Speech, Strength 5/5 b/l x 4 extremities, Sensation intact, CN III-XII NL, Reflexes 2+;Extremities: No cyanosis, pedal edema 1+ EKG LAFB, no STTWI. Pertinent Findings- WBC 10.3, hemoglobin 15.1, hematocrit 43.5, platelet 288. Sodium 130, potassium 4.8, chloride 102, bicarbonate 22, anion gap 14 BUN 23, creatinine 1.3 (baseline 0.8), glucose 94. Liver chemistries-AST 34, ALT 39, alkaline phosphatase 77, CK 156 Troponin I-0.01--pending D-dimer 1063. CTA chest- - Multiple small segmental and subsegmental pulmonary emboli are appreciated within right middle lobe segmental and subsegmental branches, multiple right lower lobe segmental and subsegmental branches, and a few left lower lobe subsegmental arterial branches. - Left basilar atelectasis Stable appearing large heterogeneous exophytic liver mass projecting inferiorly from the left lobe of the liver along the lesser curvature of the stomach with previous contrast-enhanced CT findings suggestive of a hemangioma. A few additional smaller probable hemangiomas are appreciated near the dome of the liver on the prior study as well. Etiology in this case with risk factors and age greater than 50 year, /obesity, ? immobility with is likely pulmonary embolism which was diagnosed radiologically by CTA. other differential diagnosis to consider are aortic dissection, pericarditis, AL. In regards to his hemangioma, that could be continued to be worked up as an outpatient. Plan: admit the patient for PE for continued anticoagulation and monitoring Serial cardiac enzymes, electrocardiograms ABG if he has any dyspnea. Consider checking lower extremity duplex ultrasound. Check echocardiogram to assess right heart strain TRC, assess the need for supplemental oxygen Cautious use of iv fluids since excessive fluid expansion can worsen heart failure Anticoagulation with unfractionated heparin to maintain the goal PTT time between 1.5-2.5X a control value and transition to a DOAC in the am Hemoccult Plan for thrombolysis if the patient becomes hemodynamically unstable, or stable with severe hypoxemia, or severe right ventricle dysfunction. Full code. Gunjan Horton MD 01/20/18 2320: Core Measures/Misc (03/29) Sepsis (View protocol) If YES complete Sepsis Event Note If YES complete Sepsis Event Note Attending MD Review Statement Attending Statement Attending MD Statement: examined this patient, discuss w/resident/PA/ROOM SERVICE BELLHOP, agreed w/resident/PA/ROOM SERVICE BELLHOP, reviewed EMR data (avail) Attending Assessment/Plan: 52M PMH HTN presenting with episode of lightheadedness and chest pain. Patient was outside mowing his lawn when he suddenly felt lightheaded, right sided chest pain, shortness of breath. Came to ER, symptoms have improved after 1L NS. EKG was NSR without acute changes, troponin negative, CTA chest showed bilateral pulmonary emboli. Patient has no cardiac history and had a negative stress test 3 months ago. He does not smoke. No risk factors for VTE, denying immobilization, family history, bone fracture, or malignancy. Imaging also shows exophytic lesion, patient reports it is a known hemangioma that is being followed. He has never had a colonoscopy. 1. Acute bilateral pulmonary emboli without cor pulmonale 2. Exertional chest pain 3. Lightheadedness Plan - Admit to telemetry - Serial EKG and troponin - Echocardiogram - Cardiology consult - Heparin drip - Continue home medications
[2018-01-20 22:38] LABS: PT 11.8 SEC (9.4-12.5); PTT 25 SEC (25-37)
--- NOTE | 2018-01-20 23:22 | Admission Certification ---
Admission Certification Certification Statement - As attending physician, I certify that at the time of - admission, based on clinical presentation, severity of - symptoms, need for further diagnostic testing and - therapeutic interventions, and risk of adverse outcomes - without in-hospital treatment, in my clinical assessment, - this patient requires an acute hospital stay for a minimum - of two nights or longer. I have also considered psychsocial - factors such as support system, advanced age, financial - issues, cognitive issues, and failed out-patient treatments, - past re-admission history, safety of patient, and lack of - compliance as applicable. Specific rationale supporting this admission is: Bilateral PE with chest pain and lightheadedness
[2018-01-20 23:30] VITALS: BP 124/78
[2018-01-21 05:00] LABS: ABSOLUTE BASOPHIL COUNT 0 /CUMM (0.0-0.2); ABSOLUTE EOSINOPHIL COUNT 0.2 /CUMM (0.0-0.7); ABSOLUTE GRANULOCYTE CT 4.9 /CUMM (1.4-6.5); ABSOLUTE LYMPH COUNT 2.1 /CUMM (1.2-3.4); ABSOLUTE MONOCYTE COUNT 0.5 /CUMM (0.10-0.60); BASOPHIL % 0.4 % (0.0-2.0); EOSINOPHIL % 3.1 % (0-5); GRANULOCYTE % 62.7 % (42.2-75.2); HEMATOCRIT 41.4 % (42-52); MEAN CORPUSCULAR HGB 32.1 PG (27.0-31.0); MEAN CORPUSCULAR HGB CONC 34.2 G/DL (33.0-37.0); MEAN CORPUSCULAR VOLUME 94.1 FL (80.0-94.0); PLATELET COUNT 271 /CUMM (130-400); RBC DISTRIBUTION WIDTH 13.3 % (11.5-14.5); WHITE BLOOD CELL COUNT 7.8 /CUMM (4.8-10.8)
[2018-01-21 05:10] LABS: PTT 44 SEC (25-37)
--- NOTE | 2018-01-21 06:57 | PN- Housestaff ---
Clara Gallegos 01/21/18 0657: Subjective Follow-up For: PE Complaints: no complaints Tele-Events Since Last Visit: NSR. heart rate 60-77 Subjective: Patient sitting up in chair. No complaints/no acute events overnight. Review of Systems Constitutional: Reports: see HPI. Objective Last 24 Hrs of Vital Signs/I&O Vital Signs Date Time Temp Pulse Resp B/P B/P Pulse O2 O2 Flow FiO2 Mean Ox Delivery Rate 01/21 1600 Room Air 01/21 1532 97.9 82 20 120/82 94 Room Air 01/21 1355 Room Air Room Air 01/21 0800 Room Air 01/21 0711 97.1 63 16 110/60 96 01/20 2355 96 Room Air 01/20 2330 98.3 72 16 124/78 95 11 2314 Room Air 01/20 2238 63 18 122/79 96 Room Air 01/20 1927 83 16 116/70 97 Room Air 01/20 1744 98.2 108 18 108/68 96 Room Air Intake & Output 01/21 1600 01/21 0800 01/21 0000 Intake Total 400 1100 1000 Output Total Balance 400 1100 1000 Intake, IV 418 190 2944 Intake, Oral 300 300 Number 1 Bowel Movements Patient 250 lb 238 lb Weight Weight Bed scale Measurement Method Physical Exam General Appearance: Alert, Oriented X3, Cooperative, No Acute Distress Skin: No Rashes, No Breakdown, No Significant Lesion Skin Temp/Moisture Exam: Cool/Dry HEENT: Atraumatic Neck: Supple Cardiovascular: Regular Rate, Normal S1, Normal S2, No Murmurs Lungs: Clear to Auscultation, Normal Air Movement Abdomen: Normal Bowel Sounds, Soft, No Tenderness, No Hepatospenomegaly Neurological: Normal Gait, Normal Speech, Strength at 5/5 X4 Ext, Normal Tone, Sensation Intact Extremities: No Clubbing, No Cyanosis, No Edema Assessment/Plan Assessment: Raz Linares is a 52 YO male with a PMHx. of HTN and MARGARITO on CPAP, who presented to the ED with a chief complaint of "dyspnea. He is being treated for multiple bilateral pulmonary emboli. Vital signs were stable overnight. Troponins: Less than 0.01--- less than 0.01--- less than 0.01 Problem list: 1. Multiple bilateral pulmonary emboli 2. Hypertension and obstructive sleep apnea Plan: * Monitor on telemetry * Investigate causes of the multiple bilateral pulmonary emboli. Pulmonary emboli looked un-provoked as of now * Doppler lower limbs today * cardiology consult today * He will be transitioned to Eliquis today. 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 He will be worked for a hypercoagulable state and will undergo age-appropriate cancer screening for example colonoscopy and PSA Problem List: 1. Pulmonary emboli Pain Ratin Pain Location: none Pain Goal: Remain pain free Pain Plan: n/q Tomorrow's Labs & Rationales: mile Yadav MD,Patrica 01/21/18 1418: Attending MD Review Statement Attending Statement Attending MD Statement: examined this patient, discuss w/resident/PA/EVS ATTENDANT, agreed w/resident/PA/EVS ATTENDANT, reviewed EMR data (avail), discussed with nursing, discussed with case mgmt, amended to note Attending Assessment/Plan: Patient seen and examined. Resting comfortably and not in acute distress. Denies chest pain or shortness of breath. Denies palpitations. No events on potline monitor. He gives a history of chronic epigastric pain. Pain has been worked up in the past. It used to be predominantly in the right upper quadrant. He has had gallbladder studies done in the past which were negative according to the patient. Lower extremity Dopplers are negative. Given the unprovoked nature of his multiple bilateral pulmonary embolism he will require hypercoagulable workup in the future. Also requires age-appropriate cancer screening in the outpatient setting. He will be transitioned to liquids today. He remained stable overnight he may be discharged home tomorrow.
[2018-01-21 07:11] VITALS: BP 110/60
--- NOTE | 2018-01-21 09:42 | Cons- Cardiology ---
General Information and HPI Consulting Request Date of Consult: 01/21/18 Requested By: Vicenta LYLE,Patrica Reason for Consult: Pulmonary embolism History of Present Illness: The patient is a 52-year-old male with history of hypertension who presents with complaint of shortness of breath. The symptoms began approximately 24 hours prior to admission. Along with the shortness of breath he had lightheadedness and dizziness. He was found by a family member to have low blood pressure. He notes recent associated cough. He complained of sharp pain in the right side of his chest which was intermittent. He traveled by air to [place] 3 months ago, and has had no other immobilization or long trips. He is physically active. He is feeling somewhat better today after treatment with IV heparin which was changed to Eliquis. No palpitations. No orthopnea. No syncope. No nausea or vomiting. No diaphoresis. His counterperson is Dr. Richmond, and he denies any history of cardiac disease other than hypertension. There is no known history of clotting disorders in his family Allergies/Medications Allergies: Coded Allergies: No Known Allergies (01/20/18) Home Med List: Apixaban (Eliquis) 5 MG TABLET 10 MG PO BID pulmonary embolism please take 2 pill bid untill 01/27 take 1 pill bid from 01/28 Aspirin (Ecotrin*) 81 MG TABLET.DR 1 TAB PO DAILY HEART/BLOOD (Reported) Losartan/Hydrochlorothiazide (Losartan-Hctz 100-25 MG Tab) 100 MG-25 MG TABLET 1 TAB PO DAILY BP (Reported) Metoprolol Succinate 50 MG TAB.ER.24H 1 TAB PO DAILY HEART/BP (Reported) Current Medications: Current Medications Sig/Floridalma Start time Last Medication Dose Route Stop Time Status Admin Acetaminophen 1,000 MG ONCE ONE 01/20 2045 DC 01/20 N/A 1 UNIT IV 01/20 Acetaminophen 0 .STK-MED ONE 01/20 2041 DC IV Apixaban 5 MG BID 01/21 900 DC PO Apixaban 10 MG BID 01/21 900 AC 01/21 PO 01/271 1026 Aspirin Buffered 81 MG DAILY 01/21 900 AC 01/21 PO 0806 Heparin Sodium 8,115 UNIT ONCE ONE 01/21 0550 DC 01/21 (Porcine) IV 01/21 0551 0624 Heparin Sodium 0 .STK-MED ONE 01/20 2203 DC (Porcine) .ROUTE Heparin Sodium 5,000 UNIT ONCE ONE 01/20 214 DC 01/20 (Porcine) IV 01/20 2146 221 Heparin Sodium 25,000 UNIT Q24H 01/20 214 DC 01/20 (Porcine) IV 2238 Sodium Chloride 500 ML Omeprazole 40 MG DAILY AC 01/21 0745 AC PO Sodium Chloride 1,000 ML Q8H 01/20 2300 DC 01/20 IV 01/21 0659 2333 Sodium Chloride 1,000 ML BOLUS ONE 01/20 1830 DC 01/20 IV 01/20 1929 1853 Review of Systems Review of Systems: No fever. No chills. No rash. No tremor. No melena. All other systems were reviewed, and were noted to be negative. 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 Home Who Do You Live With? spouse Smoking Status: Never Smoked ETOH Use: occasional use Illicit Drug Use: denies illicit drug use Exam & Diagnostic Data Vital Signs and I&O Vital Signs Date Time Temp Pulse Resp B/P B/P Pulse O2 O2 Flow FiO2 Mean Ox Delivery Rate 01/21 08 Room Air 01/21 07 97.1 63 16 110/60 96 01/20 2355 96 Room Air 01/20 2330 98.3 72 16 124/78 95 / 2314 Room Air 01/20 2238 63 18 122/79 96 Room Air 01/20 1927 83 16 116/70 97 Room Air 01/20 1744 98.2 108 18 108/68 96 Room Air Intake & Output 01/21 1600 01/21 0801/21 0000 01/20 1600 01/20 0801/20 0000 Intake Total 1100 1000 Output Total Balance 1100 1000 Intake, IV 800 1000 Intake, Oral 300 Patient 250 lb 238 lb Weight Weight Bed scale Measurement Method Physical Exam: Gen: The patient is in no acute distress HEENT: Normal nose, ears, and oropharynx. Pupils equal bilaterally. Conjunctiva normal. Neck: Supple with no JVD, no masses, and no thyromegaly Lungs: Clear to auscultation with normal respiratory effort Heart: RRR, S1, S2, no murmurs. No peripheral edema, 2+ pulses in the lower extremities bilaterally Abdomen: Soft, nontender, no masses. No hepatomegaly. No splenomegaly Extremities: No clubbing or cyanosis. Normal muscle strength in the upper and lower extremities Skin: Normal skin turgor with no skin ulcers or lesions noted. Neuro: Cranial nerves intact. Sensation intact Psych: Alert and oriented x 3 with appropriate affect Labs/Patrick Results: Laboratory Tests 01/21 01/21 01/21 0835 0440 0003 Chemistry Sodium (137 - 145 mmol/L) 139 Potassium (3.5 - 5.1 mmol/L) 4.3 Chloride (98 - 107 mmol/L) 104 Carbon Dioxide (22 - 30 mmol/L) 25 Anion Gap (5 - 16) 10 BUN (9 - 20 mg/dL) 19 Creatinine (0.7 - 1.2 mg/dL) 0.9 Estimated GFR (>60 ml/min) > 60 BUN/Creatinine Ratio (7 - 25 %) 21.1 Troponin I (<0.11 ng/ml) < 0.01 0.01 Coagulation APTT (25 - 37 SEC) 44 H Hematology CBC w Diff NO MAN DIFF REQ WBC (4.8 - 10.8 /CUMM) 7.8 RBC (4.70 - 6.10 /CUMM) 4.40 L Hgb (14.0 - 18.0 G/DL) 14.1 Hct (42 - 52 %) 41.4 L MCV (80.0 - 94.0 FL) 94.1 H MCH (27.0 - 31.0 PG) 32.1 H MCHC (33.0 - 37.0 G/DL) 34.2 RDW (11.5 - 14.5 %) 13.3 Plt Count (130 - 400 /CUMM) 271 MPV (7.4 - 10.4 FL) 8.0 Gran % (42.2 - 75.2 %) 62.7 Lymphocytes % (20.5 - 51.1 %) 26.9 Monocytes % (1.7 - 9.3 %) 6.9 Eosinophils % (0 - 5 %) 3.1 Basophils % (0.0 - 2.0 %) 0.4 Absolute Granulocytes (1.4 - 6.5 /CUMM) 4.9 Absolute Lymphocytes (1.2 - 3.4 /CUMM) 2.1 Absolute Monocytes (0.10 - 0.60 /CUMM) 0.5 Absolute Eosinophils (0.0 - 0.7 /CUMM) 0.2 Absolute Basophils (0.0 - 0.2 /CUMM) 0 01/20 01/20 1855 1826 Chemistry Sodium (137 - 145 mmol/L) 138 Potassium (3.5 - 5.1 mmol/L) 4.8 Chloride (98 - 107 mmol/L) 102 Carbon Dioxide (22 - 30 mmol/L) 22 Anion Gap (5 - 16) 14 BUN (9 - 20 mg/dL) 23 H Creatinine (0.7 - 1.2 mg/dL) 1.3 H Estimated GFR (>60 ml/min) 58 L BUN/Creatinine Ratio (7 - 25 %) 17.7 Glucose (65 - 99 mg/dL) 94 Calcium (8.4 - 10.2 mg/dL) 9.7 Total Bilirubin (0.2 - 1.3 mg/dL) 0.6 AST (17 - 59 U/L) 34 ALT (21 - 72 U/L) 39 Alkaline Phosphatase (< 127 U/L) 77 Creatine Kinase (55 - 170 U/L) 156 Troponin I (<0.11 ng/ml) < 0.01 Total Protein (6.3 - 8.2 g/dL) 7.1 Albumin (3.5 - 5.0 g/dL) 4.1 Globulin (1.9 - 4.2 gm/dL) 3.0 Albumin/Globulin Ratio (1.1 - 2.2 %) 1.4 Lipase (23 - 300 U/L) 131 Cancelled Coagulation PT (9.4 - 12.5 SEC) 11.8 INR (0.90 - 1.17) 1.08 APTT (25 - 37 SEC) 25 D-Dimer High Sensitivty (0 - 243 ng/ml) 1063 H Hematology CBC w Diff NO MAN DIFF REQ WBC (4.8 - 10.8 /CUMM) 10.3 RBC (4.70 - 6.10 /CUMM) 4.65 L Hgb (14.0 - 18.0 G/DL) 15.1 Hct (42 - 52 %) 43.5 MCV (80.0 - 94.0 FL) 93.5 MCH (27.0 - 31.0 PG) 32.5 H MCHC (33.0 - 37.0 G/DL) 34.8 RDW (11.5 - 14.5 %) 12.9 Plt Count (130 - 400 /CUMM) 288 MPV (7.4 - 10.4 FL) 7.9 Gran % (42.2 - 75.2 %) 80.6 H Lymphocytes % (20.5 - 51.1 %) 12.6 L Monocytes % (1.7 - 9.3 %) 4.6 Eosinophils % (0 - 5 %) 1.8 Basophils % (0.0 - 2.0 %) 0.4 Absolute Granulocytes (1.4 - 6.5 /CUMM) 8.3 H Absolute Lymphocytes (1.2 - 3.4 /CUMM) 1.3 Absolute Monocytes (0.10 - 0.60 /CUMM) 0.5 Absolute Eosinophils (0.0 - 0.7 /CUMM) 0.2 Absolute Basophils (0.0 - 0.2 /CUMM) 0 Diagnostic Data EKG Results EKG tracings independently reviewed, and reveals normal sinus rhythm at 64, normal EKG Other Results CTA chest 01/20/18: - Multiple small segmental and subsegmental pulmonary emboli are appreciated within right middle lobe segmental and subsegmental branches, multiple right lower lobe segmental and subsegmental branches, and a few left lower lobe subsegmental arterial branches. - Left basilar atelectasis - Stable appearing large heterogeneous exophytic liver mass projecting inferiorly from the left lobe of the liver along the lesser curvature of the stomach with previous contrast-enhanced CT findings suggestive of a hemangioma. A few additional smaller probable hemangiomas are appreciated near the dome of the liver on the prior study as well. As recommended previously, a liver protocol MRI with and without contrast would be helpful in more definitive assessment. Lower extremity venous Doppler 01/21/18: No evidence of deep venous thrombosis involving the bilateral lower extremities. Assessment/Plan Assessment/Plan The patient is a 52-year-old male with history of hypertension who presents with complaint of shortness of breath, lightheadedness, and chest discomfort. He is found to have multiple pulmonary emboli bilaterally. There is no known inciting factor as an etiology for the pulmonary emboli. Recommendations: * I agree with Eliquis 10 mg p.o. twice daily 7 days followed by 5 mg p.o. twice daily * Echocardiogram * Monitor on telemetry * Given the unprovoked PE, I recommend that a hypercoagulability workup be performed at some point Consult Acknowledgment - Thank you for your consult request.
--- NOTE | 2018-01-21 10:22 | ULTRASOUND REPORT ---
EXAMINATION: US TRIPLEX OF LOWER EXTREMITIES, BILATERAL CLINICAL INFORMATION: Patient has bilateral pulmonary embolism. Evaluate for DVT. COMPARISON: CT of the chest 01/20/2018 TECHNIQUE: Color-flow triplex imaging with spectral analysis and compression Doppler were performed on the lower extremities. FINDINGS: Respiratory variation, normal compression and augmented flow are noted throughout the lower extremities. The visualized common femoral vein, superficial femoral vein, profunda femoral vein, popliteal vein and midcalf peroneal and posterior tibial venous segments show no evidence of deep venous thrombosis. There is no Sexton's cyst. IMPRESSION: No evidence of deep venous thrombosis involving the bilateral lower extremities.
--- NOTE | 2018-01-21 11:05 | Patient Discharge Instructions ---
Discharge Instructions General Discharge Information You were seen/treated for: Pulmonary embolism (blood clots in your lungs) Watch for these problems: If you have any of these: Shortness of breath, chest pain, dizziness, passing out, please visit your nearest emergency room Special Instructions: plz follow up with PCP/CARDIOLOGY IN 1-2 WEEKS Given the unprovoked PE, recommend that a hypercoagulability workup be performed. PLZ FOLLOW UP WITH PCP. please do age appropriate cancer screening with your pcp Diet Continue normal diet: Yes Recommended Diet: Regular Activity Activity Self Limited: Yes Acute Coronary Syndrome Inclusion Criteria At DC or during hospital stay patient has or had the following: ACS DIAGNOSIS No Discharge Core Measures Meds if any: Prescribed or Continued at Discharge Meds if any: NOT Prescribed or Continued at Discharge Congestive Heart Failure Inclusion Criteria At DC or during hospital stay patient has or had the following: CHF DIAGNOSIS No Discharge Core Measures Meds if any: Prescribed or Continued at Discharge Meds if any: NOT Prescribed or Continued at Discharge Cerebrovascular accident Inclusion Criteria At DC or during hospital stay patient has or had the following: CVA/TIA Diagnosis No Discharge Core Measures Meds if any: Prescribed or Continued at Discharge Meds if any: NOT Prescribed or Continued at Discharge Venous thromboembolism Inclusion Criteria VTE Diagnosis Yes VTE Type Pulmonary Embolism VTE Confirmed by (Test) CT CHEST ANGIOGRAM Discharge Core Measures - Per Current guidelines, there needs to be overlap - treatment for the first 5 days of Warfarin therapy. - If discharged on Warfarin prior to 5 days of - overlap therapy, the patient will need to be - assessed for post discharge needs including - *Post discharge parental anticoagulation - *Warfarin and/or parental anticoagulation education - *Follow up date to check INR post discharge At least 5 days overlap therapy as Inpatient No Meds if any: Prescribed or Continued at Discharge Note: Overlap Therapy is Warfarin and Anticoagulant Meds if any: NOT Prescribed or Continued at Discharge
[2018-01-21] MEDS ORDERED: ELIQUIS5 M1 PO (11:39)
[2018-01-21] MEDS ORDERED: OMEPRAZOLE40 M1 PO (12:52)
--- NOTE | 2018-01-21 14:02 | PN- Student ---
Subjective Subjective: 52 Y/O male patient presented to the ER after felling like he was going to pass out while outside doing yard work. The patients complained of feeling nauseous, dizzy, and short of breath. He checked his blood pressure at home afer the onset of the episode and it was found to be about 63/59. His symptoms lasted about 30 minutes and drinking water helped slightly. The patient reports feeling short of breath that morning, prior to conducting his yard work, and was hospitalized over ten years ago for a similar episode. The patient has Reynauds and HTN. His medications include Metoprolol (50mg/day), Losartan (100mg/day), Aspirin ( 80mg/day), and Apixiban (10mg/BID for 7 days, 5mg/BID after 7 days). The patient reports having a myositis raction to a statin drug in the past. The patient was hospitalized in the past for shoulder debridement over 5 years ago and for back pain; hepatic hemangioma was discovered incidently on CT scan during his visit for back pain. 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 He reports drinking alcohol occasionally; 1 beer/week. He has never used tobacco before and does not use any drugs for recreational purposes. Upon review of systems it was found that becomes dizzy upon standing up suddenly. He reports having RUQ pain when he eats; one night in particular he mentions lying down and feeling a tearing followed by a burning feeling in his RUQ after turing on his left side. The patient reports taking OTC drugs for GERD years ago however it has resolved. Objective Objective: Upon ascultation normal S1/S2 heart sounds were heard without any murmurs. No JVD or pedal edema was appreciated on inspection/palpation. No janeway lesions or osler nodes were found on inspection/palpation of the patients hands. Slight crackles were heard upon ascultation of the right lower lung field. Both calf sizes were measured to be 17 inches in diameter. No abdominal pain was found upon palpation of the abdomen; negative Salmon's sign. Temperature 97.1, Pulse-63, Respiration-16, Blood Pressure 110/60, Pulse Ox. 96 Decreased RBC (4.4), decreased Hct (41.4), decreased MCV (94) Elevated D-dimer (1063) Increased BUN (23), increased Creatinine (1.3), decreased GFR (58) Doppler showed no evidence of DVT Cardiac enzymes are < 0.1 Chest CTA showed multiple small pulmonary emboli within the right middle lobe and a few in the left lower lobe; additionally, left basilar atelectasis was noted along with a liver mass projecting inferiorly from the left lobe. Assessment/Plan Assessment: Bilaeral PE * 30 min episode that included angina, nausea, and dizziness accompanied by hypotension that was relieved sligtly by drinking water. Abdominal pain * RUQ pain associated with eating food. Had episode while lying down where he experienced a tearing followed by burning pain in his RUQ upon turning on his left side. Plan: Bilateral PE * Patient was put on Apixiban 10mg/BID for 7 days and 5mg/BID after 7 days. * The patient is taking Aspirin 81mg daily * Awaiting echo
[2018-01-21 15:32] VITALS: BP 120/82
[2018-01-21 22:00] VITALS: BP 122/86
[2018-01-22 06:13] VITALS: BP 128/88
--- NOTE | 2018-01-22 06:50 | PN- Housestaff ---
Clara Gallegos 01/22/18 0649: Subjective Follow-up For: Multiple bilateral pulmonary embolism Complaints: no complaints Tele-Events Since Last Visit: Normal sinus rhythm heart rate 61-74 Subjective: No complaints/no acute events overnight Review of Systems Constitutional: Reports: see HPI. Objective Last 24 Hrs of Vital Signs/I&O Vital Signs Date Time Temp Pulse Resp B/P B/P Pulse O2 O2 Flow FiO2 Mean Ox Delivery Rate 01/22 0800 97 Room Air 01/22 0613 98.0 63 16 128/88 97 Room Air 01/21 2200 97.8 72 15 122/86 95 01/21 1600 Room Air 01/21 1532 97.9 82 20 120/82 94 Room Air 01/21 1355 Room Air Room Air Intake & Output 01/22 1600 01/22 0800 01/22 0000 Intake Total 400 600 Output Total Balance 400 600 Intake, Oral 400 600 Patient 234 lb Weight Physical Exam General Appearance: Alert, Oriented X3, Cooperative, No Acute Distress Skin: No Rashes, No Breakdown, No Significant Lesion Skin Temp/Moisture Exam: Cool/Dry HEENT: Atraumatic Neck: Supple Cardiovascular: Regular Rate, Normal S1, Normal S2, No Murmurs Lungs: Clear to Auscultation, Normal Air Movement Abdomen: Normal Bowel Sounds, Soft, No Tenderness, No Hepatospenomegaly Neurological: Normal Gait, Normal Speech, Strength at 5/5 X4 Ext, Normal Tone Extremities: No Clubbing, No Cyanosis, No Edema, Normal Pulses Assessment/Plan Assessment: Raz Linares is a 52 YO male with a PMHx. of HTN and MARGARITO on CPAP, who presented to the ED with a chief complaint of "dyspnea. He is being treated for multiple bilateral pulmonary emboli. Vital signs were stable overnight. He mentions that his first cousin has a factor V Leiden deficiency. Problem list: 1. Multiple bilateral pulmonary emboli 2. Hypertension and obstructive sleep apnea Plan: * Plan is possible discharge today after echo reviewed and cleared by cardiology * He is on Eliquis 10 mg per oral twice daily for 7 days followed by 5 mg per oral twice daily * Upon discharge he will follow up with his primary care physician and pick pack worker. He will be worked for a hypercoagulable state and will undergo age-appropriate cancer screening for example colonoscopy and PSA Problem List: 1. Pulmonary emboli 2. Hypertension 3. Liver lesion Pain Ratin Pain Location: None Pain Goal: Remain pain free Pain Plan: n/a Tomorrow's Labs & Rationales: none Vicenta LYLEPatrica 01/22/18 1046: Attending MD Review Statement Attending Statement Attending MD Statement: examined this patient, discuss w/resident/PA/BOTTLE FILLER, agreed w/resident/PA/BOTTLE FILLER, discussed with family, reviewed EMR data (avail), discussed with nursing, discussed with case mgmt, amended to note Attending Assessment/Plan: Patient seen and examined. Resting comfortably and not in any acute distress. No issues overnight. Denies chest pain or shortness of breath. Denies palpitations. He Is Hemodynamically Stable and Not Requiring Oxygen Supplementation. He Looks Forward to Being Discharged Later on Today. His echocardiogram is pending. Once results are reviewed and they have no acute pathology that requires intervention he will be discharged today. He is to follow-up with his primary care provider for age-appropriate cancer screening. He is to have appropriate coagulopathy workup done as an outpatient with his primary care doctor. He has been advised to return to the ER should he develop
[2018-01-22 07:52] LABS: ABSOLUTE BASOPHIL COUNT 0 /CUMM (0.0-0.2); ABSOLUTE EOSINOPHIL COUNT 0.4 /CUMM (0.0-0.7); ABSOLUTE GRANULOCYTE CT 3.3 /CUMM (1.4-6.5); ABSOLUTE LYMPH COUNT 1.4 /CUMM (1.2-3.4); ABSOLUTE MONOCYTE COUNT 0.5 /CUMM (0.10-0.60); BASOPHIL % 0.4 % (0.0-2.0); EOSINOPHIL % 6.4 % (0-5); GRANULOCYTE % 59.4 % (42.2-75.2); HEMATOCRIT 44.2 % (42-52); MEAN CORPUSCULAR HGB CONC 33.8 G/DL (33.0-37.0); MEAN CORPUSCULAR VOLUME 94.8 FL (80.0-94.0); PLATELET COUNT 270 /CUMM (130-400); RBC DISTRIBUTION WIDTH 13.2 % (11.5-14.5); RED BLOOD CELL CT 4.66 /CUMM (4.70-6.10); WHITE BLOOD CELL COUNT 5.6 /CUMM (4.8-10.8)
--- NOTE | 2018-01-22 12:10 | PN- Cardiology ---
Subjective Subjective: Patient is lying in bed comfortably. Transthoracic echocardiogram being performed. No specific complaints. Objective Vital Signs and I&Os Vital Signs Date Time Temp Pulse Resp B/P B/P Pulse O2 O2 Flow FiO2 Mean Ox Delivery Rate 01/22 0800 97 Room Air 01/22 0613 98.0 63 16 128/88 97 Room Air 01/21 2200 97.8 72 15 122/86 95 / 1600 Room Air 01/21 1532 97.9 82 20 120/82 94 Room Air 01/21 1355 Room Air Room Air Intake & Output 01/22 1600 01/22 0800 01/22 0000 01/21 1600 01/21 0800 01/21 0000 Intake Total 400 054 208 2008 1000 Output Total Balance 400 472 444 1036 1000 Intake, IV 211 983 3983 Intake, Oral 400 600 300 300 Number 1 Bowel Movements Patient 234 lb 250 lb 238 lb Weight Weight Bed scale Measurement Method Current Medications: Current Medications Sig/Floridamla Start time Last Medication Dose Route Stop Time Status Admin Acetaminophen 650 MG ONCE ONE 01/21 2100 DC 01/21 PO 01/21 2101 2105 Apixaban 10 MG BID 01/21 900 AC 01/22 PO 01/27 2101 0848 Aspirin Buffered 81 MG DAILY 01/21 0900 AC 01/22 PO 0848 Omeprazole 40 MG DAILY AC 01/21 0745 AC 01/22 PO 0609 Patient Medication 1 ED ONE ONE 01/21 1615 NC Teaching ED 01/21 1616 Results Last 48 Hrs of Labs/Mics: Laboratory Tests 01/22/18 0619: CBC w Diff NO MAN DIFF REQ, RBC 4.66 L, MCV 94.8 H, MCH 32.0 H, MCHC 33.8, RDW 13.2, MPV 8.0, Gran % 59.4, Lymphocytes % 25.2, Monocytes % 8.6, Eosinophils % 6.4 H, Basophils % 0.4, Absolute Granulocytes 3.3, Absolute Lymphocytes 1.4, Absolute Monocytes 0.5, Absolute Eosinophils 0.4, Absolute Basophils 0 01/21/18 1200: APTT Cancelled 01/21/18 0835: Troponin I < 0.01 01/21/18 0440: Anion Gap 10, Estimated GFR > 60, BUN/Creatinine Ratio 21.1, APTT 44 H, CBC w Diff NO MAN DIFF REQ, RBC 4.40 L, MCV 94.1 H, MCH 32.1 H, MCHC 34.2, RDW 13.3 , MPV 8.0, Gran % 62.7, Lymphocytes % 26.9, Monocytes % 6.9, Eosinophils % 3.1, Basophils % 0.4, Absolute Granulocytes 4.9, Absolute Lymphocytes 2.1, Absolute Monocytes 0.5, Absolute Eosinophils 0.2, Absolute Basophils 0 01/21/18 0003: Troponin I 0.01 01/20/18 1855: Anion Gap 14, Estimated GFR 58 L, BUN/Creatinine Ratio 17.7, Glucose 94, Calcium 9.7, Total Bilirubin 0.6, AST 34, ALT 39, Alkaline Phosphatase 77, Creatine Kinase 156, Troponin I < 0.01, Total Protein 7.1, Albumin 4.1, Globulin 3.0, Albumin/Globulin Ratio 1.4, Lipase 131, PT 11.8, INR 1.08, APTT 25, D-Dimer High Sensitivty 1063 H, CBC w Diff NO MAN DIFF REQ, RBC 4.65 L, MCV 93.5, MCH 32.5 H, MCHC 34.8, RDW 12.9, MPV 7.9, Gran % 80.6 H, Lymphocytes % 12.6 L, Monocytes % 4.6, Eosinophils % 1.8, Basophils % 0.4, Absolute Granulocytes 8.3 H, Absolute Lymphocytes 1.3, Absolute Monocytes 0.5, Absolute Eosinophils 0.2, Absolute Basophils 0 01/20/18 1826: Lipase Cancelled Assessment/Plan Assessment/Plan Assessment: 1. Bilateral pulmonary emboli 2. History of hypertension 3. Mild acute renal insufficiency-resolved Recommendations: -Continue current medication treatment -Out of bed as tolerated -Echocardiac impending -If echocardiogram is okay, probable discharge today -Follow-up with regular glassblower as outpatient -Hypercoagulability workup as outpatient. Continue telemetry? No
[2018-01-22] MEDS ORDERED: ELIQUIS5 M1 PO (12:56)
[2018-01-22] MEDS ORDERED: OMEPRAZOLE40 M1 PO (12:56)
[2018-01-22 13:31] VITALS: BP 140/100
--- NOTE | 2018-01-22 14:37 | Discharge Summary ---
Visit Information Visit Dates Admission Date: 01/20/18 Discharge Date: 01/22/18 Hospital Course Course Attending Physician: Patrica Yadav MD Primary Care Physician: Sherron LYLE,Matt Carroll Hospital Course: Raz Linares is a 52 YO male with a PMHx. 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 Patient says that he started to experience shortness of breath, lightheadedness, and dizziness, which he had not experienced previously. Patient says that the symptoms came on suddenly and lasted approximately 20 minutes in duration. He subsequently went inside his home and measured his blood pressure, which indicated he had a low systolic reading. He drank some water to only minimal relief of his symptoms. Patient denies any recent leg swelling, surgeries, or bone fractures. Patient states he took a plane ride to [place] in November but denies any recent long distance automobile travel. Patient additionally mentions he experiences, usually after eating fatty, fried food, occasional pain on the outer part of his chest by pointing to his right upper quadrant. Patient further denies any chest pain, palpitations, nausea, vomiting, and fevers. Patient denies smoking tobacco products. Patient admits to drinking alcohol occasionally. Patient works in the [employer] industry, usually standing on his feet for the majority of his work. Problem list: 1. Multiple bilateral pulmonary emboli 2. Liver Hemangioma 3. Hypertension and obstructive sleep apnea Hospital Course: Multiple bilateral pulmonary emboli: Admitted to telemetry for cardiac monitoring and assessment of vitals. He was given 81mg. Anticoagulated with unfractionated heparin to maintain the goal PTT time between 1.5-2.5X a control value and transitioned to DOAC on day 2. He was started on Eliquis 10 mg p.o. twice daily 7 days followed by 5 mg p.o. twice daily at home. Given the unprovoked PE, we recommend that a hypercoagulability workup be performed with pcp upon d/c. Liver Hemangioma found on CTA Chest: Asymptomatic. Pt will f/u with PCP upon d/c. Hypertension: He is on Losartan 25 mg once po. On the day of discharge, Denied chest pain, shortness of breath, palpitations. He was hemodynamically stable and not requiring Oxygen supplementation.He is to follow-up with his primary care provider for age-appropriate cancer screening eg colonoscopy adn PSA. He is to have appropriate coagulopathy workup done as an outpatient with his primary care doctor and see the outpatient admitting clerk. We educated him about eliquis in detail. Allergies: Coded Allergies: No Known Allergies (01/20/18) Significant Procedures: CHEST CTA: - Multiple small segmental and subsegmental pulmonary emboli are appreciated within right middle lobe segmental and subsegmental branches, multiple right lower lobe segmental and subsegmental branches, and a few left lower lobe subsegmental arterial branches. - Left basilar atelectasis - Stable appearing large heterogeneous exophytic liver mass projecting inferiorly from the left lobe of the liver along the lesser curvature of the stomach with previous contrast-enhanced CT findings suggestive of a hemangioma. A few additional smaller probable hemangiomas are appreciated near the dome of the liver on the prior study as well. As recommended previously, a liver protocol MRI with and without contrast would be helpful in more definitive assessment. VENOUS DOPPLER STUDY: No evidence of deep venous thrombosis involving the bilateral lower extremities. ECHOCARDIOGRAM: Normal left ventricular ejection fraction estimated at 55-60%. 1. Minimal aortic sclerosis is present with no valvular stenosis or insufficiency. 2. Mitral leaflet thickening is present with minimal mitral insufficiency and no valvular prolapse. 3. There is no pericardial fluid detected. 4. The left ventricular chamber size and systolic function are normal. 5. The right heart structures appear normal. Minimal to mild tricuspid insufficiency is present with no evidence of pulmonary hypertension. Pertinent Lab Results: D-dimer 1063 Troponins: Less than 0.01--- less than 0.01--- less than 0.01 Disposition Summary Disposition Principal Diagnosis: Bilateral pulmonary emboli Additional Diagnosis: HTN, MARGARITO, mild acute renal insufficiency(resolved) Discharge Disposition: home or self care Discharge Instructions General Discharge Information Code Status: Full Code Patient's Diet: heart healthy diet Patient's Activity: as tolerated Follow-Up Instructions/Appts: Watch for these problems: If you have any of these: Shortness of breath, chest pain, dizziness, passing out, please visit your nearest emergency room Special Instructions: sarah follow up with PCP/CARDIAC CATH TECHNICIAN IN 1-2 WEEKS Medications at Discharge Discharge Medications: Continue taking these medications: Losartan/Hydrochlorothiazide (Losartan-Hctz 100-25 MG Tab) 100 MG-25 MG TABLET 1 Tablet ORAL DAILY Qty = 30 Comments: DID NOT RECIEVE IN HOSPITAL Metoprolol Succinate (Metoprolol Succinate) 50 MG TAB.ER.24H 1 Tablet ORAL DAILY Qty = 90 Comments: DID NOT RECIEVE IN HOSPITAL Aspirin (Ecotrin*) 81 MG TABLET.DR 1 Tablet ORAL DAILY Comments: Last Taken: 01/22/18 Time: 9 AM Start taking the following new medications: Apixaban (Eliquis) 5 MG TABLET 10 Milligram ORAL TWICE DAILY Qty = 72 No Refills Instructions: please take 2 pill bid untill 01/27 take 1 pill bid from 01/28 . Comments: Last Taken: 01/22/18 Time: 9 AM Omeprazole (Omeprazole) 40 MG CAPSULE.DR 1 Capsule ORAL DAILY Qty = 30 No Refills Instructions: . Comments: Last Taken: 01/22/18 Time: 6 AM Copies To: Sherron LYLE,Matt Lovett MD Review Statement Documenting Attending: Patrica Yadav MD
--- NOTE | 2018-01-22 16:39 | ECHOCARDIOGRAM REPORT ---
SHILPA HUSAIN Age: 52 : 1965 Gender: M Exam Date: 01/22/2018 09:41 Exam Location: 1 [address] Ht (in): 73 Wt (lb): 234 BSA: 2.36 BP: 110 / 60 Ordering Physician: Felicia Bautista MD Referring Physician: Felicia Bautista MD Technologist: Gustavo Vines [facility] Room Number: 180-1 Indications: SOURCE OF EMBOLUS Rhythm: Sinus Technical Quality: Fair, Technically difficult study FINDINGS Left Ventricle Normal global left ventricular size, wall thickness, systolic function with no obvious regional wall motion abnormalities. Normal left ventricular ejection fraction estimated at 55-60%. Right Ventricle Right ventricle at upper limits of normal. Right Atrium Normal right atrial size. Left Atrium Normal left atrial size. Mitral Valve Mitral valve thickened. Trace mitral regurgitation. Aortic Valve Trileaflet aortic valve. Focal thickening of the aortic valve cusps. No aortic stenosis. No aortic regurgitation. Tricuspid Valve Tricuspid valve not well visualized, grossly normal. Trace to mild tricuspid regurgitation. Pulmonic Valve Pulmonic valve not well visualized, grossly normal. Pericardium No pericardial effusion. Great Vessels Aortic root and proximal ascending aorta not well visualized, grossly normal. CONCLUSIONS 1. Minimal aortic sclerosis is present with no valvular stenosis or insufficiency. 2. Mitral leaflet thickening is present with minimal mitral insufficiency and no valvular prolapse. 3. There is no pericardial fluid detected. 4. The left ventricular chamber size and systolic function are normal. 5. The right heart structures appear normal. Minimal to mild tricuspid insufficiency is present with no evidence of pulmonary hypertension. Lionel Stevens M.D. (Electronically Signed) Final Date: 22 January 2018 16:35 MEASUREMENTS (Male / Female) Normal Values 2D ECHO LV Diastolic Diameter PLAX 5.4 cm 4.2 - 5.9 / 3.9 - 5.3 cm LV Systolic Diameter PLAX 3.3 cm 2.1 - 4.0 cm LV Fractional Shortening PLAX 38.9 % 25 - 46 % LV Ejection Fraction 2D Teich 68.8 % IVS Diastolic Thickness 1.0 cm LVPW Diastolic Thickness 1.1 cm LV Relative Wall Thickness 0.4 RV Internal Dim ED PLAX 2.8 cm 1.9 - 3.8 cm LVOT Diameter 2.4 cm Aortic Root Diameter 2.9 cm LA Systolic Diameter LX 4.1 cm 3.0 - 4.0 / 2.7 - 3.8 cm LA Volume 48.0 cm 18 - 58 / 22 - 52 cm Ascending Aorta Diameter 3.5 cm DOPPLER AV Peak Velocity 109.0 cm/s AV Peak Gradient 4.8 mmHg AV Mean Velocity 85.5 cm/s AV Mean Gradient 3.0 mmHg AV Velocity Time Integral 25.2 cm LVOT Peak Velocity 84.2 cm/s LVOT Peak Gradient 2.8 mmHg LVOT Mean Velocity 54.7 cm/s LVOT Mean Gradient 1.0 mmHg LVOT Velocity Time Integral 18.3 cm LVOT Stroke Volume 82.8 cm AV Area Cont Eq vti 3.3 cm AV Area Cont Eq pk 3.5 cm MV Peak Velocity 101.0 cm/s MV Peak Gradient 4.1 mmHg MV Mean Velocity 56.8 cm/s MV Mean Gradient 1.0 mmHg Mitral E Point Velocity 74.0 cm/s Mitral A Point Velocity 88.8 cm/s Mitral E to A Ratio 0.8 MV PHT Velocity 84.2 cm/s MV Deceleration [place] 260.0 cm/s MV Pressure Half Time 97.2 ms MV Area PHT 2.3 cm MV Deceleration Time 208.0 ms TR Peak Velocity 110.0 cm/s TR Peak Gradient 4.8 mmHg Right Atrial Pressure 5.0 mmHg Pulmonary Artery Systolic Pressure 9.8 mmHg Right Ventricular Systolic Pressure 9.8 mmHg PV Peak Velocity 103.0 cm/s PV Peak Gradient 4.2 mmHg PV Mean Velocity 71.0 cm/s PV Mean Gradient 2.0 mmHg PV Velocity Time Integral 23.5 cm LV E' Lateral Velocity 11.3 cm/s Mitral E to LV E' Lateral Ratio 6.5 LV E' Septal Velocity 6.1 cm/s Mitral E to LV E' Septal Ratio 12.1
== END 2018-01-22 14:02 | DRG 176 ==
LOC: ERH 17:35 → ERHI 21:34 → 1NO 21:34 → ENRESERV 22:08 → ENTRNSPT 22:34 → CMPTRNSPT 22:54 → 1NO 23:10 → ENPENDDIS 01-22 11:00 → EDPENDDISTM 01-22 12:46 → 1NO 01-22 14:02
PROVIDERS: Internal Medicine; Internal Medicine Endocrinology, Diabetes & Metabolism; Physician Assistant
DX: I26.99 Other pulmonary embolism without acute cor pulmonale (principal); I10 Essential (primary) hypertension; E78.5 Hyperlipidemia, unspecified; G47.33 Obstructive sleep apnea (adult) (pediatric); I73.00 Raynaud's syndrome without gangrene
CPT/HCPCS: 1NSP; 36592; 82436; 93005; 93010; 93306; 93970; 96374; 99291; J0131; J1644